=== PATIENT | female | born 1940 ===

== ENCOUNTER 2022-03-02 09:47 | Inpatient (IN) | payer OTHER ==
[~2022-03-02] VITALS: Ht 160 cm; Wt 68.0 kg
[2022-03-02] MEDS ORDERED: TOPROL XL25 M1 PO (10:03)
[2022-03-02] MEDS ORDERED: CANDESARTAN CILE8 MG PO (10:03)
[2022-03-02] MEDS ORDERED: ATORVASTATIN CA10 MG PO (10:04)
== END 2022-03-06 18:31 | disposition home or self-care (01) | DRG 310 ==
LOC: ER 09:47 → SEC-K 20:19 → SURG 03-03 13:21 → SEC-K 03-03 18:07 → MEDI 03-04 15:30
PROVIDERS: ADMIT Internal Medicine; ATTEND Internal Medicine
PROC: 4A12X4Z Monitoring of Cardiac Electrical Activity, External Approach (ICD-10-PCS; principal; 2022-03-02)
DX: I48.91 Unspecified atrial fibrillation (principal)